=== PATIENT | male | born 1955 | race Caucasian/White ===

== ENCOUNTER → 2018-10-31 | Outpatient (CLI) | payer OTHER, MEDICARE ==
[~2018-10-31] VITALS: Ht 182.9 cm; Wt 111.1 kg
[~2018-10-31] MED LIST: ASPIR 8181 MG PO; CELEBREX 200 M200 M1 PO; CENTRUM SILVER1 EAC4 PO; GYMNEMA SYLVESTR1 GM PO; KLOR-CON 1010 MEQ PO; LASIX 20 MG TAB20 MG PO; LOSARTAN POTAS100 MG PO; OMEPRAZOLE40 MG PO; PRAVACHOL40 MG PO; SYNJARDY XR 121 EACH PO; TYLENOL EXTRA500 MG PO; VASCEPA1 GM PO
[2018-10-31 06:59] VITALS: BP 145/91
[2018-10-31 07:09] LABS: HEMATOCRIT 47.4 % (42.0-52.0); HEMOGLOBIN 15.9 gm/dL (14.0-18.0); MCH 31.3 pg (26.0-34.0); MCHC 33.5 g/dL (28.0-37.0); MCV 93.4 fL (80.0-100.0); RBC 5.07 mil/uL (4.50-6.00); RDW 13.3 % (10.5-14.5); WBC 5.8 thou/uL (4.0-11.0)
[2018-10-31 07:17] LABS: CALCIUM 8.7 mg/dL (8.5-10.1); CREATININE 0.9 mg/dL (0.7-1.3); POTASSIUM 3.8 mmol/L (3.5-5.1)
--- NOTE | 2018-10-31 09:48 | EKG ---
[place] [address] [address] [facility] [place] [address] ELECTROCARDIOGRAM REPORT Name: BENSONKARINROSALINA GARDNER Room #: REG [facility]#: [id number] ������������������ Admission: 10/31/18 ������������������ Attend Phys: Josh Mendoza MD, Discharge: ������������������ Date of : 51 Report #: [id number] ����������������������������������������������������������������� [id number] THIS REPORT FOR: //name// [facility] Test Date: 2018-10-31 Test Time: 07:11:16 Pat Name: KARIN BENSON Department: Room: Gender: M Vision Specialist: Kamron JEAN : 1955 Requested By: Josh Mendoza Order Number: [id number] MD: Pipe Shields Measurements Intervals Haskell Rate: 62 P: -5 LA: 202 QRS: -40 QRSD: 124 T: 105 QT: 414 QTc: 421 Interpretive Statements Sinus rhythm Left bundle branch block No previous ECG available for comparison Electronically Signed On 10-31-2018 9:48:38 CDT by Pipe Shields [email or web address] ��������������������������������������������� <ELECTRONICALLY SIGNED> ���������������������������������������� By: Pipe Shields MD, [facility] ��������������������������������������������� 10/31/18 0948 0711 0 Pipe Shields MD, FACC /EPI
--- NOTE | 2018-10-31 11:39 | CATHLAB ---
[facility] [address] [place] [address] INVASIVE PROCEDURE REPORT Name: KARIN BENSON Room #: [facility] [id number] ������������� Admission: 10/31/18 ������������� Attend Phys: Josh Mendoza, Discharge: ��� ������������� ��� Date of : 51 Date of Service: 10/31/18 1139 �� Report #: [id number] �������� ��������������������������������������������[id number] THIS REPORT FOR: //name// APPROVED REPORT Study performed: 10/31/2018 07:53:27 Patient Details Patient Status: Out-Patient Room #: The patient is a 63 year-old male Event Personnel Nick Clemente Sed Special Education Teacher, Camden Heredia RN, Basil Palma RTR Scrub, Radha Ordonez RTR Monitor, Maria Elena Raines RTR Scrub, Dede Muir RTR, BILLER Monitor Procedures Performed Art Access - L radial artery Left Heart Cath w/or w/o Coronaries [id number] [facility] [address] Initial Mod Sed Same Phys/QHP Gr [id number] 78439 Mod Sed Same Phys/QHP Ea [id number] Indication Dyspnea, Positive stress test Risk Factors Obesity, Hypercholesterolemia, Coronary Artery DiseaseHypertension, Diabetes Previous Procedures/Diagnoses Previous PCI Procedure Narrative The Left Wrist^ was infiltrated with 1% Lidocaine subcutaneous anesthesia. A TRANSRADIAL SLENDER 6F GLIDESHEATH KIT #[id number] sheath was inserted into the Left Radial Artery^. Coronary angiography was performed using coronary diagnostic catheters. The right coronary system was accessed and visualized with a 5FR 3DRC #[id number] catheter. The left coronary system was accessed and visualized with a 6 fr JL4 catheter. The left ventricle was accessed and visualized with a 5FR JR 4 #[id number] catheter. Left ventricular/Aortic Valve gradient assessed via catheter pullback. Left ventriculogram was performed in [place], 30 degree projection. Closure device was deployed with a Fr VASC BAND L 27CM #[id number]. There was no hematoma. Intraoperative Conscious Sedation [facility] [address] [place] [address] INVASIVE PROCEDURE REPORT Name: KARIN BENSON Room #: REG [facility]#: [id number] ������������� Admission: 10/31/18 ������������� Attend Phys: Josh Mendoza, Discharge: ��� ������������� ��� Date of : 51 Date of Service: 10/31/18 1139 �� Report #: [id number] �������� ��������������������������������������������[id number] Sedation start time: 8:38 Case end Time: 9:15 Fentanyl 100 mcg Versed 3 mg Fluoro Time: 6.32 minutes Dose: DAP 66733.00 cGycm2 1027 mGy Contrast Type and Amount: Omnipaque 50 ml Diagnostic Cath Left Main This is a large caliber vessel, widely patent with no flow-limiting lesions. LAD There are overlapping stents in the proximal segment of the LAD, patent with minimal restenosis. There is mild diffuse disease in the distal LAD. Diagonal 1 There is mild disease at the ostium. Diagonal 2 There is mild disease at the ostium. Circumflex This is a dominant vessel, with a patent stent in the proximal segment. OM1 This is a moderate size caliber vessel, with mild disease in the proximal segment. OM2 This is a moderate size caliber vessel, patent with no flow-limiting lesions. L PDA There is a patent stent in the proximal segment, with minimal restenosis. Right Coronary This is a small, nondominant vessel with mild disease. Left Ventriculography The left ventricle is normal in size with normal contractility. The left ventricular ejection fraction is estimated to be >55%. Hemodynamics The aortic pressure is 113/69 mmHg with a mean of 88 mmHg. The left ventricular pressure is 112/16 mmHg with a mean of mmHg. The left ventricular end diastolic pressure is 26 mmHg. Conclusion 1. There are patent stents in the proximal LAD with minimal restenosis. 2. The left circumflex artery is a dominant vessel, with a patent stent in the proximal segment. 3. There is a stent in the left PDA, patent with minimal restenosis. [facility] [address] [place] [address] INVASIVE PROCEDURE REPORT Name: KARIN BENSON Room #: REG DAPHNEY Gibbs#: [id number] ������������� Admission: 10/31/18 ������������� Attend Phys: Josh Mendoza, Discharge: ��� ������������� ��� Date of : 51 Date of Service: 10/31/18 1139 �� Report #: [id number] �������� ��������������������������������������������[id number] 4. Normal LV systolic function. 5. Recommend aggressive risk factor management. ��������������������������������������������� <ELECTRONICALLY SIGNED> ���������������������������������������� By: Nick Clemente MD ��������������������������������������������� 10/31/18 1139 1139 1139 Nick Clemente MD /INF
== END ==
LOC: CATH 06:23
PROVIDERS: Internal Medicine Cardiovascular Disease
DX: I25.10 Atherosclerotic heart disease of native coronary artery without angina pectoris (principal); T82.855A Stenosis of coronary artery stent, initial encounter; I10 Essential (primary) hypertension; E11.9 Type 2 diabetes mellitus without complications; E78.5 Hyperlipidemia, unspecified; E78.00 Pure hypercholesterolemia, unspecified; K21.9 Gastro-esophageal reflux disease without esophagitis; Z79.82 Long term (current) use of aspirin; Z79.899 Other long term (current) drug therapy; Z98.890 Other specified postprocedural states; Y83.8 Other surgical procedures as the cause of abnormal reaction of the patient, or of later complication, without mention of misadventure at the time of the procedure